=== PATIENT | female | born 1930 | race Two or more races ===

== ENCOUNTER 2017-10-22 12:23 | Outpatient (CLI) | payer OTHER | END 2017-10-22 15:09 | disposition home or self-care (01) | LOC: RAD 12:23 | DX: S42.144A Nondisplaced fracture of glenoid cavity of scapula, right shoulder, initial encounter for closed fracture (principal); S60.221A Contusion of right hand, initial encounter; S60.222A Contusion of left hand, initial encounter; S60.211A Contusion of right wrist, initial encounter; S60.212A Contusion of left wrist, initial encounter ==

== ENCOUNTER 2017-10-25 08:46 | Outpatient (CLI) | payer OTHER | END 2017-10-25 12:24 | disposition home or self-care (01) | LOC: TOM 08:46 | DX: S06.0X1A Concussion with loss of consciousness of 30 minutes or less, initial encounter (principal); S42.144A Nondisplaced fracture of glenoid cavity of scapula, right shoulder, initial encounter for closed fracture ==

== ENCOUNTER 2017-11-17 08:35 | Outpatient (CLI) | payer OTHER | END 2017-11-17 08:44 | disposition home or self-care (01) | LOC: RAD 501 08:35 | DX: S42.144A Nondisplaced fracture of glenoid cavity of scapula, right shoulder, initial encounter for closed fracture (principal) ==